=== PATIENT | male | born 1975 | race Caucasian/White ===

== ENCOUNTER 2023-09-27 16:35 | Outpatient (CLI) | payer OTHER | END 2023-09-27 23:59 | disposition critical access hospital (66) | LOC: EMS 16:35 | DX: R53.1 Weakness (principal); R20.0 Anesthesia of skin; R55 Syncope and collapse; R42 Dizziness and giddiness; M25.561 Pain in right knee; S50.812A Abrasion of left forearm, initial encounter; V28.09XA Other motorcycle driver injured in noncollision transport accident in nontraffic accident, initial encounter; Y92.838 Other recreation area as the place of occurrence of the external cause | CPT/HCPCS: A0425; A0427 ==

== ENCOUNTER 2023-09-27 16:38 | Emergency (ER) | payer OTHER ==
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
[2023-09-27 16:47] LABS: BASOPHILS % (AUTO) 0.3 %; EOSINOPHILS % (AUTO) 0.2 %; HCT - HEMATOCRIT 46.3 % (42.0-52.0); HGB - HEMOGLOBIN 15.5 g/dL (14.0-18.0); LYMPHOCYTES # (AUTO) 1.7 10^3/uL (1.5-3.5); LYMPHOCYTES % (AUTO) 12.6 %; MEAN CORPUSCULAR HEMOGLOBIN 28.4 pg (27.0-31.0); MEAN CORPUSCULAR HGB CONC 33.5 g/dL (32.0-36.0); MEAN CORPUSCULAR VOLUME 84.8 fL (80.0-94.0); MEAN PLATELET VOLUME 9.9 fL (7.4-11.4); MONOCYTES # (AUTO) 0.8 10^3/uL (0.0-1.0); MONOCYTES % (AUTO) 5.7 %; NEUTROPHILS # (AUTO) 10.7 10^3/uL (1.5-6.6); NEUTROPHILS % (AUTO) 80.8 %; PLT - PLATELET COUNT 221 10^3/uL (130-450); RED BLOOD COUNT 5.46 10^6/uL (4.70-6.10); RED CELL DISTRIBUTION WIDTH 12.9 % (12.0-15.0); WHITE BLOOD COUNT 13.3 x10^3/uL (4.8-10.8)
[2023-09-27 16:52] LABS: INR 1.2 (0.8-1.2)
[2023-09-27] MEDS ORDERED: LORazepam 2 MG/ML VIAL ONE (16:52)
--- NOTE | 2023-09-27 17:09 | CT Report ---
PROCEDURE: Head WO INDICATIONS: MCA, L arm weakness tingling TECHNIQUE: Noncontrast 4.5 mm thick angled axial sections acquired from the foramen magnum to the vertex. For r adiation dose reduction, the following was used: automated exposure control, adjustment of mA and/or kV according to patient size. COMPARISON: Correlation is made with the accompanying imaging. FINDINGS: Image quality: Motion artifact is noted. CSF spaces: Basal cisterns are patent. No extra-axial fluid collections. Ventricles are normal in size and shape. Brain: No midline shift. No intracranial masses or hemorrhage. Anand-white matter interface is norm al. Skull and face: Calvarium and visualized facial bones are intact, without suspicious lesions. Sinuses: Mucous retention cyst can be seen within the left maxillary sinus and within a left ethmoid air cell. Visualized sinuses and mastoids are otherwise clear. IMPRESSION: No intracranial hemorrhage is seen. No acute intracranial pathology. If there is strong clinical concern for a stroke, please consider a dedicated brain MRI for further e valuation (assuming that there is no contraindication to MRI). Reviewed by: Teto Amaya MD on 09/27/2023 4:08 PM JOSEPH Approved by: Teto Amaya MD on 09/27/2023 4:08 PM JOSEPH Station ID: [id number]
[2023-09-27 17:10] LABS: ALBUMIN 4.5 g/dL (3.2-5.5); ALBUMIN/GLOBULIN RATIO 1.6 (1.0-2.2); BILIRUBIN,TOTAL 0.7 mg/dL (0.2-1.0); CALCIUM 9.9 mg/dL (8.5-10.3); CREATININE 1.7 mg/dL (0.6-1.3); POTASSIUM 4.6 mmol/L (3.5-4.5); TOTAL PROTEIN 7.3 g/dL (6.4-8.9)
--- NOTE | 2023-09-27 17:11 | CT Report ---
PROCEDURE: Cervical Spine WO INDICATIONS: mca, l arm tingling TECHNIQUE: Noncontrast 3 mm thick sections acquired from the skull base to the T4 level. Sagittal and coronal r eformats were then constructed. Dedicated oblique axial images were performed through the disk level s. For radiation dose reduction, the following was used: automated exposure control, adjustment of mA and/or kV according to patient size. COMPARISON: Correlation is made with the accompanying imaging. FINDINGS: Image quality: This study is limited by quantum mottle artifact. Bones: No fractures or dislocations. Visualized superior ribs are intact. Focal degenerative change can be seen involving the C1-C2 interface anteriorly. Mild disc space narro wing can be seen at C5-C6. Mild posterior directed endplate osteophytes can be seen at this level. Mi lder degenerative changes are seen elsewhere. Soft tissues: Prevertebral soft tissues are normal in thickness. No paravertebral hematomas. No ap ical pneumothoraces. IMPRESSION: Mild focal C5-C6 degenerative change can be seen. Reviewed by: Teto Amaya MD on 09/27/2023 4:09 PM AKFAWN Approved by: Teto Amaya MD on 09/27/2023 4:09 PM JOSEPH Station ID: [id number]
--- NOTE | 2023-09-27 17:13 | CT Report ---
PROCEDURE: Chest WO INDICATIONS: MCA TECHNIQUE: A CT scan of the chest was performed. Intravenous contrast media was not administered. Images were re corded and evaluated at appropriate window settings. Reformats: axial MIP of the chest, coronal and s agittal. For radiation dose reduction, the following was used: automated exposure control, adjustment of mA and/or kV according to patient size. COMPARISON: Correlation is made with the accompanying imaging. FINDINGS: Image quality: There is streak artifact seen through the upper abdomen. Chest wall and lower neck: No thyroid nodule which requires sonographic follow up. No axillary or sup raclavicular adenopathy by size. Lungs and pleura: No consolidation. No pleural effusions. No pneumothorax. No suspicious pulmonary n odules which require follow up. Mediastinum: Heart size is normal. No pericardial effusion. No large vessel abnormality. No mediastin al adenopathy by size criteria. Bones: No aggressive osseous abnormality. Upper Abdomen: Unremarkable. IMPRESSION: Noncontrast chest CT within normal limits. Reviewed by: Teto Amaya MD on 09/27/2023 4:12 PM AKDT Approved by: Teto Amaya MD on 09/27/2023 4:12 PM AKDT Station ID: [id number]
--- NOTE | 2023-09-27 17:46 | XRAY Report ---
PROCEDURE: Knee 3V RT INDICATIONS: MCA, pain TECHNIQUE: 3 views of the knee were acquired. COMPARISON: None. FINDINGS: Bones: Comminuted displaced fracture fragments are seen lateral to the knee, with donor site most li ryan at the fibular head. Soft tissues: Soft tissue edema is seen lateral to the knee. No significant effusion. IMPRESSION: Displaced comminuted fracture of the fibular head, likely involving the distal insertion of the bicep s femoris tendon/lateral collateral ligament. Reviewed by: Patrick Vargas MD on 09/27/2023 5:45 PM PDT Approved by: Patrick Vargas MD on 09/27/2023 5:45 PM PDT Station ID: [id number]
--- NOTE | 2023-09-27 17:49 | XRAY Report ---
PROCEDURE: Shoulder 2+V LT INDICATIONS: trauma TECHNIQUE: 3 views of the shoulder were acquired. COMPARISON: None. FINDINGS: Bones: No acute fractures or dislocations. No suspicious bony lesions. Visualized ribs appear inta ct. Soft tissues: No suspicious soft tissue calcifications. The visualized lungs are within normal limi ts. IMPRESSION: No acute osseous abnormality. If there is clinical concern or persistent symptoms, additional imaging such as repeat radiographs or advanced imaging (e.g. CT, MRI) may be helpful for further evaluation. Reviewed by: Patrick Vargas MD on 09/27/2023 5:48 PM PDT Approved by: Patrick Vargas MD on 09/27/2023 5:48 PM PDT Station ID: [id number]
--- NOTE | 2023-09-27 18:48 | MRI Report ---
PROCEDURE: Brain WO INDICATIONS: L arm > L numbness ? stroke vs trauma TECHNIQUE: Noncontrast axial T1 spin echo, axial T2 fast spin echo, sagittal and axial FLAIR, coronal T2 fast sp in echo, axial gradient echo, axial diffusion and ADC through the brain. COMPARISON: CT head 09/27/2023. FINDINGS: Image quality: Excellent. CSF Spaces: Basal cisterns are patent. No extra-axial fluid collections. Ventricles are normal in size and shape. Brain: No intracranial masses or hemorrhage. Anand/white matter interface is normal. Brainstem appe ars normal. Diffusion-weighted images demonstrate no acute ischemic insult. No chronic ischemic ins ults. Normal intravascular flow voids are present. Skull and face: Calvarium has normal marrow signal. Orbits appear normal. Sinuses: Mucous retention cyst or polyp in the left maxillary sinus. Mild mucosal thickening in the bilateral anterior ethmoid air cells. Sinuses and mastoids are otherwise clear. IMPRESSION: No acute intracranial hemorrhage or recent infarct. No findings are seen to explain the reported symp toms. Reviewed by: Patrick Vargas MD on 09/27/2023 6:46 PM PDT Approved by: Patrick Vargas MD on 09/27/2023 6:46 PM PDT Station ID: [id number]
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
[2023-09-27] MEDS: HYDROcod/ACETAM 5/325 MG TABLET PO STA (20:17)
[2023-09-27] MEDS: SODIUM CHLORIDE 0.9% 1,000 ML IV STA (20:18)
[2023-09-27 20:58] VITALS: O2SAT 99
[2023-09-27] MEDS: KETOROLAC 30 MG/ML VIAL IVP STA (21:41)
[2023-09-27] MEDS: HYDROcod/ACET 5/325 Prepack 4 PO STA (21:41)
[2023-09-27 21:54] VITALS: BP 129/84
== END 2023-09-27 21:48 | disposition home or self-care (01) ==
LOC: ED 16:38
DX: S82.831A Other fracture of upper and lower end of right fibula, initial encounter for closed fracture (principal); S40.012A Contusion of left shoulder, initial encounter; S40.212A Abrasion of left shoulder, initial encounter; V86.96XA Unspecified occupant of dirt bike or motor/cross bike injured in nontraffic accident, initial encounter; Y92.410 Unspecified street and highway as the place of occurrence of the external cause
CPT/HCPCS: 36415; 70450; 70551; 71250; 72125; 72141; 73030; 73562; 80053; 85025; 85610; 96361; 96374; 99284; A9270; J2060